=== PATIENT | male | born 1970 | race Caucasian/White ===

== ENCOUNTER → 2021-11-19 | Day surgery (SDC) | payer OTHER ==
[~2021-11-19] MED LIST: AMLODIPINE BESY10 MG PO; CATAPRES 0.1MG0.1 MG PO; CLARITIN10 M2 PO; COZAAR100 MG PO; GLIPIZIDE XL5 MG PO; HYDROCHLOROTHIA25 MG PO; IBU800 MG PO; KLOR-CON M1010 MEQ PO; METFORMIN HCL1000 M1 PO; METOPROLOL SUCC50 MG PO; NEURONTIN300 MG PO; NORCO 10-325 T1 EACH PO; PROTONIX 40 MG40 M1 PO; RANITIDINE HCL300 M1 PO; VITAMIN D2000 UNIT PO; ZOFRAN8 MG PO
== END | disposition home or self-care (01) ==
LOC: OR 11-18 10:00
DX: K29.60 Other gastritis without bleeding (principal); K76.6 Portal hypertension; K31.89 Other diseases of stomach and duodenum; K75.81 Nonalcoholic steatohepatitis (NASH); K74.60 Unspecified cirrhosis of liver; K21.00 Gastro-esophageal reflux disease with esophagitis, without bleeding; I10 Essential (primary) hypertension; E78.5 Hyperlipidemia, unspecified; E11.9 Type 2 diabetes mellitus without complications; E66.9 Obesity, unspecified; F17.200 Nicotine dependence, unspecified, uncomplicated; Z68.33 Body mass index [BMI] 33.0-33.9, adult; Z88.2 Allergy status to sulfonamides; Z88.8 Allergy status to other drugs, medicaments and biological substances; Z79.84 Long term (current) use of oral hypoglycemic drugs; Z79.899 Other long term (current) drug therapy
CPT/HCPCS: 82962; J7040